=== PATIENT | male | born 1985 | race Caucasian/White ===

== ENCOUNTER 2022-01-10 17:54 | Emergency (ER) | payer BC ==
[~2022-01-10] VITALS: Ht 182.9 cm; Wt 101.2 kg
--- NOTE | 2022-01-10 18:49 | NUR ---
PT IS IN ROOM #1A. DR SMITH EVALUATED THE PT.
--- NOTE | 2022-01-10 19:28 | NUR ---
ekg performed, pt is asking something for anxiety. I informed this to Dr. Miller.
[2022-01-10] MEDS ORDERED: LORAZEPAM 1 MG TABLET ONE (19:40)
[2022-01-10 19:44] LABS: HEMATOCRIT 47.7 % (36.7-47.1); MEAN CORPUSCULAR HEMOGLOBIN 30.8 uug (23.8-33.4); MEAN CORPUSCULAR VOLUME 89.1 fL (73.0-96.2); PLATELET COUNT (AUTO) 244 K/uL (152-348)
[2022-01-10] MEDS ORDERED: LORAZEPAM 0.5 MG TABLET PO ONE (19:45)
[2022-01-10] MEDS ORDERED: LORA-259 PO (20:16)
--- NOTE | 2022-01-10 20:25 | NUR ---
Dr. Miller speaking with pt.
--- NOTE | 2022-01-10 20:34 | NUR ---
Patient discharged to home in stable condition. Written and verbal after care instructions given. Patient verbalizes understanding of instructions. Stressed follow up or return to ER for worsening s/s.
[2022-01-10 20:35] VITALS: BP 132/80
== END 2022-01-10 20:35 | disposition home or self-care (01) ==
LOC: ER 17:58
DX: R07.89 Other chest pain (principal); F41.9 Anxiety disorder, unspecified; Z72.0 Tobacco use
CPT/HCPCS: 36415; 71045; 83735; 85025; 93005; A4663